=== PATIENT | female | born 1990 | race Caucasian/White ===

== ENCOUNTER 2022-02-03 15:02 | Outpatient (CLI) | payer OTHER, SELFPAY ==
--- NOTE | 2022-02-03 15:00 | US_ITS ---
WS: [id number] RIGHT UPPER QUADRANT ULTRASOUND HISTORY: K80.20 - Calculus of gallbladder without cholecystitis COMPARISON: None available. Liver: 16.7 cm in length. Normal size liver. No bile duct dilatation or mass. Portal Vein: Normal hepatopetal flow with monophasic waveform. Gallbladder: Normally distended gallbladder with no stones or wall thickening. CBD: 0.2 cm Pancreas: Normal size and echogenicity. Right kidney: 11.2 cm in length. Normal size and echogenicity. No hydronephrosis or mass. Aorta and IVC: Unremarkable abdominal aorta and IVC. No ascites. US/US gall bladder [id number] IMPRESSION: Normal RIGHT upper quadrant ultrasound.
== END 2022-02-03 15:03 | disposition home or self-care (01) ==
LOC: RAD 15:03
PROVIDERS: PCP Registered Nurse; Visit Provider Registered Nurse
DX: K80.20 Calculus of gallbladder without cholecystitis without obstruction (principal)
CPT/HCPCS: 76705

== ENCOUNTER 2022-03-09 06:10 | Day surgery (SDC) | payer OTHER, SELFPAY ==
[2022-03-07 08:34] VITALS: BMI 25.8
[2022-03-09 06:34] VITALS: BP 139/99; PULSE 108; RESP 18; TEMP 36.2; O2SAT 100
[2022-03-09] MEDS: sodium chloride 0.9% 1,000 ML 30 ML IV (06:38)
[2022-03-09 06:40] LABS: OR HCG Qualitative Urine Negative (Negative)
--- NOTE | 2022-03-09 06:53 | ANES.PREANE2 ---
Pre-Anesthetic Assessment Height/Weight: Height 1.75 m Weight 79.379 kg Temp Pulse Resp BP Pulse Ox O2 Del Method 97.2 F L 108 H 18 139/99 100 03/09/22 06:34 03/09/22 06:34 03/09/22 06:34 03/09/22 06:34 03/09/22 06:34 03/09/22 06:34 Preop Diagnosis: epigastric pain Operation Date: 03/09/22 07:30 Proposed Procedures p EGD [id number],R10.13(Not Applicable) - José Antonio Boyce, DO Was Beta Lillian taken within 24 hours: N/A Was Clonidine taken within 24 hours: N/A Last intake: Intake Last Liquid Date 03/08/22 Last Liquid Time 20:00 Last Solid Date 03/08/22 Last Solid Time 20:00 Social No alcohol and No tobacco Exam alert, oriented x 3, clear to auscultation bilaterally and regular rate & rhythm Airway Submandibular: within normal limits Cervical ROM: within normal limits Mallampati: Class II History/ROS No significant history except as noted and No significant complaints Pulmonary None reported CV/HEM None reported None reported Hepatic None reported GI None reported Metabolic None reported Musc/skel None reported Neuropsych None reported Anesthetic Plan ASA status: 1 Anesthesia: Anesthesia Evaluation and MAC Risk of > 500 ml blood loss (7ml/kg in children): Yes, adequate IV access and fluids planned Medications/Allergies Home Medications Medication Instructions Recorded Confirmed Last Taken Type ondansetron HCl 4 mg tablet 4 mg PO Q8H PRN nausea and 02/16/22 03/09/22 Unknown Rx vomiting 5 days #10 tabs pantoprazole 40 mg tablet,delayed 40 mg PO BID 6 weeks #84 tabs 02/22/22 03/09/22 03/09/22 06:00 Rx release (Protonix) Allergies Allergy/AdvReac Type Severity Reaction Status Date / Time Penicillins Allergy rash Verified 02/22/22 15:38 Current Medications Generic Name Dose Route Start Last Admin Trade Name Freq PRN Reason Stop Dose Admin Sodium Chloride 1,000 mls @ 30 mls/hr 03/09/22 06:15 03/09/22 06:38 Sodium Chloride 0.9% IV 03/10/22 06:14 30 mls/hr .Q24H ANGÉLICA Administration PFSH Anesthesia Medical History Cholecystitis, unspecified Surgical History Hx of breast lump removal right breast Hx of tonsillectomy Social History Smoking and tobacco status: never smoked Alcohol intake: never Adopted: No Caregiver/support person: No Lives independently: No Household members: children Marital status: Current occupational status: employed History of recent travel: No Sexually active: Yes Current gender identity: Female Data Anesthesia Cardiac Studies: No Data to Display
--- NOTE | 2022-03-09 07:23 | W.PM.OPSUD ---
Surgery/Procedure H&P Update DATE OF PROCEDURE: March 09, 2022 DATE H&P PERFORMED: 02/22/22 PREOP DIAGNOSIS: epigastric pain PLANNED PROCEDURE: Operation Date: 03/09/22 07:30 Proposed Procedures p EGD [id number],R10.13(Not Applicable) - José Antonio Boyce DO
[2022-03-09 07:41] VITALS: BP 109/81; PULSE 78; RESP 18; TEMP 36.7; O2SAT 99
[2022-03-09 07:50] VITALS: BP 124/83; PULSE 76; RESP 18; O2SAT 98
--- NOTE | 2022-03-09 14:32 | ANE.PACU2 ---
Inpatient post-anesthesia follow up: Airway intact: Yes Vital signs: Temperature 98.0 F Pulse Rate 76 Respiratory Rate 18 Blood Pressure 124/83 Pulse Oximetry 98 Oxygen Delivery Me thod Room Air Oxygen Flow Rate Fraction of Inspir ed Oxygen Hydration adequate: Yes Nausea and vomiting: No Pain level: 1 Mental status: Baseline
== END 2022-03-09 08:00 | disposition home or self-care (01) ==
PROVIDERS: Anesthesiology; PCP Registered Nurse; Visit Provider Surgery
PROC: 0DJ08ZZ Inspection of Upper Intestinal Tract, Via Natural or Artificial Opening Endoscopic (ICD-10-PCS; CPT 43235; principal; 2022-03-09 07:30)
DX: R10.13 Epigastric pain (principal); K29.70 Gastritis, unspecified, without bleeding
CPT/HCPCS: 43239; 81025; 84703; 88305; J2704; J7030

== ENCOUNTER → 2022-12-27 10:19 | Outpatient (BNVA) | payer OTHER, SELFPAY | PROVIDERS: PCP Registered Nurse; Visit Provider Registered Nurse | DX: J02.9 Acute pharyngitis, unspecified (principal); Z20.822 Contact with and (suspected) exposure to COVID-19 | CPT/HCPCS: 87400; 87426; 87880 ==